=== PATIENT | female | born 1965 | race Caucasian/White ===

== ENCOUNTER 2022-09-24 06:37 | Emergency (ER) | payer OTHER, SELFPAY ==
--- NOTE | ~2022-09-24 | XR_ITS ---
Portable chest x-ray Comparison: None Clinical History: Cough Findings: Lungs are clear, without focal consolidation or pleural effusion. Cardiomediastinal silho uette is unremarkable. Bones and soft tissues are unremarkable. Impression: Normal chest. Reviewed, dictated and finalized at location M. Impression: Normal chest.
[2022-09-24 06:51] VITALS: BP 169/94; PULSE 73; RESP 16; TEMP 36.4; O2SAT 97
--- NOTE | 2022-09-24 07:04 | ED.NAVMDI ---
HPI - Nausea/Vomiting/Diarrhea General Chief complaint: Nausea/Vomiting/Diarrhea Stated complaint: Body Aches/diarrhea Time Seen by Provider: 09/24/22 07:02 Source: patient Mode of arrival: ambulatory Limitations: no limitations History of Present Illness HPI Narrative: 57-year-old female with a history of hypertension, diabetes mellitus, neuropathy, status post back surgery presents to the ER with -- body ache for the past few days -- nausea with diarrhea the past few days. Unknown vomiting. No abdominal pain -- no fever or chills MD elicited complaint: nausea and diarrhea Onset (ago): day(s) Associated nausea: Yes Associated abdominal pain: No Severity: mild Quality: aching Exacerbating factors: none Relieving factors: none Associated symptoms: myalgias, malaise and nausea/vomiting Related Data Home Medications Medication Instructions Recorded Confirmed atorvastatin 20 mg tablet mg 09/24/22 gabapentin 300 mg capsule mg 09/24/22 hydrochlorothiazide 25 mg tablet mg 09/24/22 lansoprazole 30 mg capsule,delayed mg 09/24/22 release montelukast 10 mg tablet mg 09/24/22 Allergies Allergy/AdvReac Type Severity Reaction Status Date / Time No Known Allergies Allergy Verified 09/24/22 06:48 Review of Systems Review of Systems: generalized body ache All systems reviewed & are unremarkable except as noted in HPI and below Constitutional: Constitutional: Reports as per HPI and Reports no additional constitutional complaints Eyes: Eyes: Reports as per HPI and Reports no additional eye complaints ENT: Reports system reviewed and no additional complaints, except as documented and Reports as per HPI Cardiovascular: Cardiovascular: Reports as per HPI and Reports no additional cardiovascular complaints Respiratory: Respiratory: Reports as per HPI and Reports no additional respiratory complaints Gastrointestinal: Gastrointestinal: Reports as per HPI and Reports no additional gastrointestinal complaints Genitourinary: Genitourinary: Reports no additional female genitourinary complaints and Reports as per HPI Musculoskeletal: Musculoskeletal: Reports no additional musculoskeletal complaints, Reports as per HPI and Reports myalgias Integumentary/Breasts: Skin/Breast: Reports system reviewed and no additional complaints, except as docu and Reports as per HPI Neurologic: Reports system reviewed and no additional complaints, except as documented and Reports as per HPI Psychiatric: Psychiatric: Reports no additional psychiatric complaints and Reports as per HPI Endocrine: Endocrine: Reports no additional endocrine complaints and Reports as per HPI Hematologic/Lymphatic: Hematologic/Lymphatic: Reports no additional hematologic/lymphatic complaints and Reports as per HPI Allergic/Immunologic: Allergic/Immunologic: Reports no additional allergic/immunologic complaints and Reports as per HPI [facility] Past Medical History Medical History (Updated 09/24/22 @ 08:07 by Juliocesar Siegel MD) Dyslipidemia Social History Social History (Updated 09/24/22 @ 06:48 by Bashir Henson RN) Smoking packs per day: 1 Smoking cigarettes per day: 20.0 Smoking status: Current every day smoker Tobacco type: cigarettes Alcohol intake: never Substance use: current Substance use type: marijuana Exam Const: General: healthy appearing and no acute distress Orientation/consciousness: patient oriented x3 Limitations: no limitations Other: blood pressure is 169/94 HENMT: Head: normal to inspection Face/Nose/Sinus: Normal external nose present Face and sinus: normal facial exam Mouth: Yes Normal oral and palatal mucosa present Throat: posterior oropharynx normal Eyes: Conjunctivae: conjunctivae normal Cornea: corneas normal Pupils: Equal, round and reactive pupils present EOM: EOMs intact bilaterally Direct Ophthalmoscopy: no photophobia Neck: Neck: normal visual inspection, no lymphadenopathy and
[2022-09-24 07:08] LABS: Basophils Absolute Auto 0.05 K/mm3 (0.00-0.10); Basophils Percent Auto 0.7 % (0.0-1.0); Eosinophils Absolute Auto 0.08 K/mm3 (0.02-0.50); Eosinophils Percent Auto 1.1 % (1.0-6.0); Hematocrit 37.7 % (35.0-49.0); Hemoglobin 12.1 g/dL (12.0-15.0); Immature Granulocyte Absolute 0.03 K/mm3 (0.00-0.00); Immature Granulocyte Percent A 0.4 % (0.0-0.0); Lymphocytes Absolute Auto 0.89 K/mm3 (1.10-4.50); Lymphocytes Percent Auto 12.4 % (18.0-42.0); Mean Corpuscular HGB Conc 32.1 g/dL (32.0-36.0); Mean Corpuscular Hemoglobin 28.4 pg (27.0-31.0); Mean Corpuscular Volume 88.5 fL (78.0-102.0); Mean Platelet Volume 9.4 fl (9.2-11.8); Monocytes Absolute Auto 0.37 K/mm3 (0.10-0.90); Monocytes Percent Auto 5.2 % (2.0-11.0); Neutrophils Absolute Auto 5.8 K/mm3 (1.7-7.2); Neutrophils Percent Auto 80.2 % (50.0-70.0); Platelet Count Result 242 K/mm3 (150-420); Red Blood Count 4.26 M/mm3 (4.20-5.40); Red Cell Distribution Width 13.7 % (11.6-14.4); White Blood Count 7.2 K/mm3 (4.8-10.8)
[2022-09-24 07:31] LABS: Alanine Aminotransferase 27 U/L (14-59); Albumin Level 3.4 g/dL (3.4-5.0); Alkaline Phosphatase 55 U/L (46-116); Anion Gap 9 mmol/L (8-16); Aspartate Amino Transferase 27 U/L (15-37); Bilirubin,Total 0.5 mg/dL (0.00-1.00); Blood Urea Nitrogen 13 mg/dL (7-18); Calcium 8.3 mg/dL (8.5-10.1); Carbon Dioxide 27 mmol/L (21-32); Chloride 103 mmol/L (98-108); Creatine Kinase 71 U/L (26-192); Estimated Glomerular Filt Rate > 60; Glucose 121 mg/dL (70-99); Magnesium 1.8 mg/dL (1.8-2.4); Osmolality Calculated 289 mOsm/kg (285-295); Potassium 3.4 mmol/L (3.5-5.1); Sodium 139 mmol/L (136-145); Total Protein 5.9 g/dL (6.4-8.2)
[2022-09-24 07:32] LABS: CRP < 0.5 mg/dL (0.0-0.9)
[2022-09-24 07:37] LABS: Influenza A QL RT-PCR Negative (Negative); Influenza B QL RT-PCR Negative (Negative); SARS-CoV-2 RNA PCR Negative (Negative)
[2022-09-24 07:55] LABS: Appearance Urine Clear (Clear); Bilirubin Urine Negative (Negative); Blood Urine Negative (Negative); Color Urine Light Yellow (Yellow); Glucose Urine UA Negative (Negative); Ketones Urine Negative (Negative); Leukocyte Esterase Ur 3+ LEU/UL (Negative); Nitrate Urine Positive (Negative); Protein Urine Negative (Negative); Specific Grav Ur <= 1.005 (1.010-1.020); Urobilinogen Urine 0.2 mg/dL (0.2-1.0)
[2022-09-24 08:00] LABS: Add Urine Microscopic? YES; RBC Urine None seen /hpf (0-2); Squamous Epithelial Cell Urine Few /hpf (Few)
[2022-09-24 08:01] LABS: Bacteria Urine 3+ /hpf
[2022-09-24 08:05] VITALS: BP 141/86; PULSE 84; RESP 18; TEMP 36.8; O2SAT 98
[2022-09-24] MEDS: POTASSIUM CHLORIDE 20 MEQ TABLET PO (08:25)
--- NOTE | 2022-09-28 12:49 | PC.NURSE ---
final urine culture reviewed. >100,000 of e.coli. pt was discharged with a prescription for cipro. this culture report shows a sensitivity to cipro. no change in plan of care.
== END 2022-09-24 08:36 | disposition home or self-care (01) ==
PROVIDERS: Emergency Medicine; Emergency Provider Internal Medicine Critical Care Medicine
DX: K52.9 Noninfective gastroenteritis and colitis, unspecified (principal); E87.6 Hypokalemia; N30.00 Acute cystitis without hematuria; E11.9 Type 2 diabetes mellitus without complications; I10 Essential (primary) hypertension; E78.5 Hyperlipidemia, unspecified; F17.210 Nicotine dependence, cigarettes, uncomplicated; Z20.822 Contact with and (suspected) exposure to COVID-19
CPT/HCPCS: 36415; 71045; 80053; 81001; 82550; 83735; 85025; 86140; 87077; 87086; 87088; 87186; 87502; 99283; A9270; U0003; U0005

== ENCOUNTER 2022-10-08 15:17 | Emergency (ER) | payer OTHER, SELFPAY ==
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
[2022-10-08 15:24] VITALS: BP 132/88; PULSE 77; RESP 20; TEMP 37; O2SAT 97
[2022-10-08] MEDS: SILVER NITRATE (*SP) STICK 1 EACH TOPICAL (15:48)
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
[2022-10-08] MEDS: TETANUS,DIPHTHERIA,AC PERTUSSIS ADULT 0.5 ML (ADACEL) IM (16:37)
[2022-10-08] MEDS: NEOMYCIN/POLYMYXIN/BACITRACIN OINTMENT PACKET 3 PACKET TOPICAL (16:38)
== END 2022-10-08 17:00 | disposition home or self-care (01) ==
PROVIDERS: Emergency Provider Internal Medicine Critical Care Medicine
DX: S81.811A Laceration without foreign body, right lower leg, initial encounter (principal); S00.83XA Contusion of other part of head, initial encounter; I10 Essential (primary) hypertension; E78.5 Hyperlipidemia, unspecified; F17.210 Nicotine dependence, cigarettes, uncomplicated; Z23 Encounter for immunization; V29.888A Rider (driver) (passenger) of other motorcycle injured in other specified transport accidents, initial encounter
CPT/HCPCS: 12001; 70450; 72125; 90471; 90715; 99284

== ENCOUNTER 2022-10-16 15:38 | Outpatient (CLI) | payer OTHER, SELFPAY ==
--- NOTE | ~2022-10-16 | XR_ITS ---
EXAMINATION: XR tibia fibula RT 2V DATE: 10/16/2022 16:05 INDICATION: Right lower leg injury. TECHNIQUE: 2 views of right tibia and fibula on 3 radiographs were obtained. COMPARISON: None. FINDINGS: Bone alignment is normal. No fracture. Joint spaces are well maintained. There is no knee j oint effusion. IMPRESSION: 1. Normal right tibia and fibula. Reviewed, dictated and finalized at location E.
== END 2022-10-16 15:39 | disposition home or self-care (01) ==
LOC: CHSIMG 15:43
PROVIDERS: Visit Provider Family Medicine
DX: S89.91XA Unspecified injury of right lower leg, initial encounter (principal)
CPT/HCPCS: 73590